=== PATIENT | female | born 1930 | race Caucasian/White ===

== ENCOUNTER → 2016-09-26 | Outpatient (CLI) | payer OTHER ==
[~2016-09-26] MED LIST: ALBUTEROL17 G1 IH; ALLERGY10 MG PO; ALPRAZOLAM PO; ASPIRIN PO; ASPIRIN81 M1 PO; CALTRATE PLUS T1 TAB PO; CELEBREX PO; CELEXA20 MG PO; CENTRUM SILVER PO; COMPAZINE10 MG PR; EQUATE ALLERGY RELIE; FOSAMAX PO; LEVAQUIN PO; LEVAQUIN750 MG PO; LOPRESSOR PO; LORTAB 5/500 TA1 TA1 PO; METOPROLOL SUCC; MULTI-VITAMIN1 TAB PO; PREDNISONE PO; PRILOSEC PO; TOPROL XL PO; ZITHROMAX1 G/PKT PO; ZOLOFT50 MG PO; ZYRTEC PO
--- NOTE | ~2016-09-26 | CT55 ---
[facility] A Service of [facility] RADIOLOGY TEXT RESULTS PATIENT: CODY ROSA LOCATION: [facility]AT : 32 UNIT #: [id number] AGE: [address]: Vlad Lopez MD SEX: F ORDER DR: [id number] [facility] [address] [place], [place] [address] [id number] O MR#: [id number] [facility] #: [id number] NAME: CODY ROSA : 1930 SEX: F STUDY DATE/TIME: 09/26/2016 13:36 UNIT: [facility] ROOM: STUDY DESCRIPTION: CT Chest W Con Attending Physician: Vlad Lopez M.D. Referring Physician: Vlad Lopez M.D. Ordering Physician: Vlad Lopez M.D. Primary Care Physician: Bryan Mae MEDICAL IMAGING REPORT This report is preliminary unless electronic signature is present EXAM CT chest with contrast, 09/26/16, 1336 hours. CLINICAL HISTORY 86-year-old woman with history of malignant neoplasm of the lung. Patient complains of cough. Lung cancer diagnosis 2008, with subsequent chemo and radiation therapy. COMPARISON PET/CT 09/04/[address] 08/21/15. TECHNIQUE Dynamic helical postcontrast images through the chest were obtained from the thoracic inlet through the adrenal glands. Sagittal and coronal reconstructions were performed. Contrast was Isovue-370 70 mL IV. Total exam DLP is 408 mGy-cm. This CT exam was performed with one or more of the following radiation dose reduction techniques: automatic exposure control, adjustment of mA and/or kV according to patient size, and iterative reconstruction. FINDINGS Images through the thoracic inlet demonstrate a right IJ catheter with the tip at the upper right atrium. There is no supraclavicular adenopathy. Very small low-density areas in the left and right lobe of thyroid are unchanged and consistent with benign etiology. Images through the chest demonstrate no pathologic mediastinal, hilar or axillary adenopathy. There is no pericardial or pleural fluid. There is very small hiatal hernia without change. The lungs demonstrate emphysematous change. There is stable less than 1 cm area of ground-glass density in the left upper lobe on image 19 with a slightly larger ground-glass area in the lateral right upper lobe on the STS. [facility] A Service of [facility] RADIOLOGY TEXT RESULTS PATIENT: CODY ROSA LOCATION: [facility] : 32 UNIT #: [id number] AGE: [address]: Vlad Lopez MD SEX: F ORDER DR: same image also unchanged. There is a ovoid soft tissue nodule in the medial right lower lobe superior segment measuring 1.7 x 1.2 cm, previously 1.8 x 1.2 cm felt likely unchanged. There are 2 abnormal areas in the left lower lobe with central soft tissue nodular density and surrounding ground-glass opacity. Both of these demonstrate increase in size of the central density with the more medial nodule measuring 1.2 x 0.9 cm previously 0.8 x 0.6 cm, and the more lateral nodule measuring 1.2 x 1.5 cm, previously 1.2 x 1.1 cm. There is bandlike density in the lingula unchanged. There are no effusions. Limited views through the upper abdomen, partially demonstrated gallstone on the last image of the study. The adrenal glands are normal. IMPRESSION 1. Right lower lobe superior segment nodule is stable. There are 2 nodules in the left lower lobe with central soft tissue density and surrounding ground-glass opacity. The surrounding ground-glass opacities are unchanged. However, the central soft tissue nodules are slightly increased in size from 09/14/15. These could represent indolent malignancy. No definite new nodules are seen. 2. Vague ground-glass areas in the right upper lobe and left upper lobe are unchanged. There are no definite new densities or effusions. Dictated by... Sheyla Neal M.D. THIS IS AN ELECTRONICALLY VERIFIED REPORT Sheyla Neal M.D. at 09/30/2016 9:07 AM Bree TD: 09/27/2016 17:13 JOB #: [id number] MEDICAL IMAGING REPORT Page 1 of 1 COPY
[2016-09-26 20:00] LABS: POC - CREATININE 0.68 mg/dL (0.44-1.03); POC - GFR >60.0 mL/min (>60)
== END | disposition home or self-care (01) ==
LOC: CCAT 09-04 13:20
PROVIDERS: Internal Medicine Medical Oncology
DX: C34.90 Malignant neoplasm of unspecified part of unspecified bronchus or lung (principal); R91.8 Other nonspecific abnormal finding of lung field; M79.89 Other specified soft tissue disorders
CPT/HCPCS: 71260; 82565; J1642; Q9967